=== PATIENT | female | born 1970 | race Caucasian/White ===

== ENCOUNTER 2024-09-14 15:52 | Emergency (ER) | payer MEDICARE ==
[~2024-09-14] VITALS: Ht 160 cm; Wt 90.7 kg
[2024-09-14] MEDS ORDERED: IBUP-1490 PO (16:42)
[2024-09-14] MEDS: BACI/NEOM/POLY B OINT PKT 1 UDPKT PACKET TP ONE (17:28)
[2024-09-14] MEDS: LIDOCAINE HCL/PF 1% 30 ML VIAL TP ONE (17:28)
[2024-09-14 17:57] VITALS: BP 134/70; TEMP 98.8; O2SAT 98
== END 2024-09-14 17:35 | disposition home or self-care (01) ==
LOC: ER 15:59
DX: S01.01XA Laceration without foreign body of scalp, initial encounter (principal); I10 Essential (primary) hypertension; E11.9 Type 2 diabetes mellitus without complications; W18.30XA Fall on same level, unspecified, initial encounter; Y93.89 Activity, other specified; Y92.89 Other specified places as the place of occurrence of the external cause; Y99.8 Other external cause status
CPT/HCPCS: 12001; 99282; A6403; J3490

== ENCOUNTER 2024-09-25 14:30 | Emergency (ER) | payer MEDICARE ==
[~2024-09-25] VITALS: Ht 160 cm; Wt 95.3 kg
[~2024-09-25 14:30] MED LIST: IBUP-1490 PO
[2024-09-25 15:31] VITALS: BP 138/74; TEMP 98; O2SAT 95
== END 2024-09-25 15:31 | disposition home or self-care (01) ==
LOC: ER 14:38 → EDBD 14:38 → ER 15:31
DX: S01.01XD Laceration without foreign body of scalp, subsequent encounter (principal); E11.9 Type 2 diabetes mellitus without complications; F79 Unspecified intellectual disabilities; I10 Essential (primary) hypertension; Z48.02 Encounter for removal of sutures; Z86.79 Personal history of other diseases of the circulatory system; Z87.39 Personal history of other diseases of the musculoskeletal system and connective tissue; Z86.59 Personal history of other mental and behavioral disorders; X58.XXXD Exposure to other specified factors, subsequent encounter